=== PATIENT | female | born 1965 | race Caucasian/White ===

== ENCOUNTER 2017-11-09 20:31 | Emergency (ER) | payer MEDICAID ==
[~2017-11-09] VITALS: Ht 167.6 cm; Wt 72.7 kg
[2017-11-09] MEDS ORDERED: HYDR200T4 PO (20:47)
[2017-11-09 21:28] VITALS: BP 124/81
== END 2017-11-09 23:07 | disposition home or self-care (01) ==
LOC: EMS 20:34
DX: J40 Bronchitis, not specified as acute or chronic (principal); F41.9 Anxiety disorder, unspecified; F17.210 Nicotine dependence, cigarettes, uncomplicated; F55.8 Abuse of other non-psychoactive substances
CPT/HCPCS: 71046; 99284; 99406

== ENCOUNTER 2019-03-10 15:35 | Emergency (ER) | payer MEDICAID ==
[~2019-03-10] VITALS: Ht 170.2 cm; Wt 71.8 kg
[~2019-03-10 15:35] MED LIST: HYDR200T4 PO
[2019-03-10 18:03] VITALS: BP 140/80
== END 2019-03-10 19:09 | disposition home or self-care (01) ==
LOC: EMS 15:35
DX: F10.20 Alcohol dependence, uncomplicated (principal); M32.9 Systemic lupus erythematosus, unspecified; F17.210 Nicotine dependence, cigarettes, uncomplicated; F12.90 Cannabis use, unspecified, uncomplicated; F15.90 Other stimulant use, unspecified, uncomplicated; F11.90 Opioid use, unspecified, uncomplicated; Z79.899 Other long term (current) drug therapy
CPT/HCPCS: 36415; 99283; G0480

== ENCOUNTER 2019-03-12 05:10 | Emergency (ER) | payer MEDICAID ==
[~2019-03-12] VITALS: Ht 162.6 cm; Wt 77.3 kg
[2019-03-12] MEDS ORDERED: LIB25 PO (05:36)
[2019-03-12 06:30] VITALS: BP 134/94
[2019-03-12] MEDS ORDERED: KETOROLAC TROMETHAMINE 60 MG/2 ML VIAL IM ONE (06:30)
[2019-03-12] MEDS ORDERED: TROLAMINE SALICYLATE/ALOE VERA 10% 85 GM CREAM TP ONE (06:30)
== END 2019-03-12 07:09 | disposition home or self-care (01) ==
LOC: EMS 05:11
DX: M54.5 Low back pain (principal); M32.9 Systemic lupus erythematosus, unspecified; F19.10 Other psychoactive substance abuse, uncomplicated; F10.20 Alcohol dependence, uncomplicated; F17.210 Nicotine dependence, cigarettes, uncomplicated; F11.90 Opioid use, unspecified, uncomplicated; F15.90 Other stimulant use, unspecified, uncomplicated; F12.90 Cannabis use, unspecified, uncomplicated; Z79.899 Other long term (current) drug therapy
CPT/HCPCS: 96372; 99283; 99406; J1885